=== PATIENT | female | born 1970 | race Caucasian/White ===

== ENCOUNTER → 2016-10-30 | Day surgery (SDC) | payer SELFPAY ==
[~2016-10-30] MED LIST: EMEND PO; LEVOTHYROXINE75 MCG PO; LORAZEPAM1 MG PO; LUNESTA2 MG PO; PROTONIX PO; SAVELLA50 MG PO
--- NOTE | ~2016-10-30 | OR ---
Unit #: [id number] #: [id number] Patient: JEISON BILLY [id number] [address] [address] [id number] MR#: [id number] NAME: JEISON BILLY ROOM: Date of Procedure: 10/30/2016 Admission Date: 10/30/2016 Surgeon: Tone Jimenes III, M.D. : 1970 Attending Physician: Tone Jimenes III, M.D. Primary Care Physician: Generic Doctor Not In System OPERATIVE REPORT PREOPERATIVE DIAGNOSIS History of gastric balloon for obesity. POSTOPERATIVE DIAGNOSIS History of gastric balloon for obesity. PROCEDURE PERFORMED Endoscopic removal of intragastric balloon. ANESTHESIA General. SPECIMENS None. COMPLICATIONS None apparent. ESTIMATED BLOOD LOSS Minimal. INDICATIONS FOR PROCEDURE This is a 46-year-old lady, who has undergone intragastric balloon placement for weight loss. She has lost a total of 23 pounds in 6 months. She is here today for removal. DESCRIPTION OF PROCEDURE After consent was obtained, the patient was brought to the endoscopy suite and placed in the left lateral decubitus position. General anesthetic was administered and I passed an EGD scope easily into the esophagus under direct visualization. Upon entry into the stomach, I was able to easily identify the balloon in the upper stomach. I was able to puncture the balloon with a catheter and then I siphoned out all the fluid. Once the balloon was fully deflated. I used the grasper to grab hold of the balloon and it was removed through the oropharynx in one piece. She tolerated the procedure without any problems and returned to the recovery room in stable condition. Dictated by... Tone Jimenes III, M.D. Unit #: [id number] #: [id number] Patient: JEISON BILLY VCL/modl TD: 10/31/2016 04:00 JOB #: [id number] CC: Luz Marina Sultana M.D. OPERATIVE REPORT X Tone Jimenes III, MD PROCEDURE OPERATIVE NOTE
[2016-10-30 11:16] LABS: BLOOD UREA NITROGEN 9 mg/dL (9-23); CALCIUM SERUM 9.3 mg/dL (8.4-10.2); CARBON DIOXIDE 25 mmol/L (22-31); CHLORIDE 99 mmol/L (100-111); GLOM FILT RATE Estimated ABOVE60 mL/min (>60); GLUCOSE FASTING 88 mg/dL (70-110); POTASSIUM 3.7 mmol/L (3.5-5.1); SODIUM 137 mmol/L (135-145)
== END | disposition home or self-care (01) ==
LOC: CSUR 09:51
PROVIDERS: Surgery
DX: Z98.84 Bariatric surgery status (principal); E03.9 Hypothyroidism, unspecified; K21.9 Gastro-esophageal reflux disease without esophagitis; Z88.5 Allergy status to narcotic agent; Z79.899 Other long term (current) drug therapy; Z90.49 Acquired absence of other specified parts of digestive tract; Z90.710 Acquired absence of both cervix and uterus
CPT/HCPCS: 80048; J0330; J2250; J2405; J3010